=== PATIENT | male | born 1995 | race African-American/Black ===

== ENCOUNTER 2020-11-27 17:15 | Emergency (ER) | payer MEDICAID ==
[~2020-11-27] VITALS: Ht 162.6 cm; Wt 72.6 kg
[2020-11-27] MEDS ORDERED: ZITHROMAX250 MG ORAL (17:41)
[2020-11-27] MEDS ORDERED: IBUPROFEN600 M1 ORAL (17:41)
[2020-11-27] MEDS ORDERED: VITAMIN D325 MC1 PO (17:42)
[2020-11-27 17:46] VITALS: BP 131/73
[2020-11-27 17:50] VITALS: BP 131/73
--- NOTE | 2020-11-27 17:54 | Emergency Room Report ---
History of Present Illness General Chief Complaint: Flu Like Symptoms Source: Patient Present Illness HPI 25-year-old male here with generalized fatigue and headache. Patient says that his brother is Covid positive. He has been exposed multiple times with his brother. His symptoms have been ongoing for 5 days. Denies vision changes, fevers, chills, chest pain, palpitations, shortness of breath, back pain, abdominal pain, nausea, vomiting, diarrhea, dysuria. 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 Nursing Documentation-[facility] Past Medical History: No Stated History Review of Systems All Other Systems: negative except mentioned in HPI Physical Exam Vital Signs Date Time Temp Pulse Resp B/P (MAP) Pulse Ox O2 Delivery O2 Flow Rate FiO2 11/27/20 17:31 98.8 82 18 131/73 (92) 97 Room Air Sp02 EP Interpretation: reviewed, normal General Appearance: no apparent distress, alert, GCS 15, non-toxic Head: normocephalic, atraumatic Eyes: bilateral eye normal inspection, bilateral eye PERRL ENT: hearing grossly normal, normal pharynx, no angioedema, normal voice Neck: full range of motion, supple/symm/no masses Respiratory: chest non-tender, lungs clear, normal breath sounds, speaking full sentences Cardiovascular #1: regular rate, rhythm, no edema Cardiovascular #2: 2+ carotid (R), 2+ carotid (L), 2+ radial (R), 2+ radial (L), 2+ dorsalis pedis (R), 2+ dorsalis pedis (L) Gastrointestinal: normal bowel sounds, non tender, soft, non-distended, no guarding, no rebound Rectal: deferred Genitourinary: normal inspection, no CVA tenderness Musculoskeletal: back normal, normal range of motion, gait/station normal, non- tender Neurologic: alert, motor strength/tone normal, oriented x3, sensory intact, responsive, speech normal Psychiatric: judgement/insight normal, memory normal, mood/affect normal, no suicidal/homicidal ideation Lymphatic: no adenopathy Medical Decision Making Diagnostic Impression: Primary Impression: Influenza-like symptoms Additional Impression: Suspected COVID-19 virus infection ER Course 25-year-old male here with generalized weakness and fatigue. Patient normal vital signs in the emergency department. He says he has been exposed multiple times to COVID-19 since his brother who is his roommate is also positive for Covid. Symptoms are nonspecific and without red flag findings in history or physical exam for significant illness. The patient is overall well-appearing wi th a normal lung exam, nonlabored breathing and normal pulse oximetry. At this time I do not believe that the patient requires emergent labs or imaging. Symptoms are most consistent with a viral syndrome which in the setting of the global pandemic of novel COVID-19 the patient is suspected to have the infection. Little clinical suspicion for pneumonia at this time or other process that would require antibiotics. Our [facility] is currently unable to provide COVID-19 testing on otherwise healthy appearing patients. The patient is given close return precautions and follow-up instructions. I educated the patient that at this time this is a [facility] and is unable to support COVID-19 screening and people that are otherwise healthy and well-appearing without evidence of decompensation. I did educate the patient that he could have any number of viral infections to include influenza, rhinovirus or COVID-19. The patient was educated that they should self-quarantine for 14 days as a precaution and not come into contact with anyone that is elderly or has multiple chronic medical conditions. The patient was also educated of the signs and symptoms that indicate worsening of a respiratory virus and would require return to the emergency department which includes worsening symptoms and difficulty breathing. The patient is given close return precautions and follow-up instructions. Last Vital Signs Date Time Temp Pulse Resp B/P (MAP) Pulse Ox O2 Delivery O2 Flow Rate FiO2 11/27/20 17:46 82 18 Room Air 11/27/20 17:46 98.8 131/73 97 Disposition: HOME, SELF-CARE Condition: Stable Scripts Cholecalciferol (Vitamin D3) (Vitamin D3*) 25 Mcg Capsule 25 MCG PO DAILY for Supplement for 28 Days, CAP Prov: Raffaele Mota M.D. 11/27/20 Ibuprofen* (MOTRIN*) 600 Mg Tablet 600 MG ORAL Q6H PRN for FOR PAIN, #20 TAB 0 Refills Prov: Raffaele Mota M.D. 11/27/20 Azithromycin* (ZITHROMAX*) 250 Mg Tablet 250 MG ORAL DAILY, #6 TAB 0 Refills Take two tables once daily for 1 day, then one tablet once daily for 4 days. Prov: Raffaele Mota M.D. 11/27/20 Referrals: [facility]. [facility] Patient Instructions: Viral Respiratory Infection Raffaele Mota M.D. Nov 27, 2020 17:54
== END 2020-11-27 17:50 | disposition home or self-care (01) ==
LOC: EMR 17:45
DX: J11.1 Influenza due to unidentified influenza virus with other respiratory manifestations (principal); Z20.828 Contact with and (suspected) exposure to other viral communicable diseases
CPT/HCPCS: 99282